=== PATIENT | female | born 1990 | race Two or more races ===

== ENCOUNTER 2023-04-16 23:13 | Emergency (ER) | payer OTHER ==
[~2023-04-16] VITALS: Ht 157.5 cm; Wt 77.0 kg
[2023-04-16 23:17] VITALS: BP 148/91
== END 2023-04-16 23:37 | disposition home or self-care (01) ==
LOC: ER 23:13
DX: S00.83XA Contusion of other part of head, initial encounter (principal); M54.2 Cervicalgia; V43.62XA Car passenger injured in collision with other type car in traffic accident, initial encounter
CPT/HCPCS: 99284; A9270